=== PATIENT | male | born 1955 | race Caucasian/White ===

== ENCOUNTER → 2017-07-02 | Outpatient (CLI) | payer MEDICAID ==
[2017-07-02 12:58] LABS: ALANINE AMINOTRANSFERASE 34 U/L (21-72); ALBUMIN 4.3 g/dL (3.5-5.0); ALKALINE PHOSPHATASE 108 U/L (38-126); ANION GAP 12 (5-19); ASPARTATE AMINO TRANSFERASE 32 U/L (17-59); BILIRUBIN,DIRECT 0.5 mg/dL (0.0-0.4); BILIRUBIN,TOTAL 0.9 mg/dL (0.2-1.3); BLOOD UREA NITROGEN 20 mg/dL (7-20); CALCIUM 9.2 mg/dL (8.4-10.2); CARBON DIOXIDE 21 mmol/L (22-30); CHLORIDE 107 mmol/L (98-107); GLUCOSE 100 mg/dL (75-110); SODIUM 139.5 mmol/L (137-145); TOTAL PROTEIN 8.2 g/dL (6.3-8.2); TRIGLYCERIDES 73 mg/dL (<150)
[2017-07-02 13:09] LABS: DIRECT LDL 115 mg/dL (<100)
[2017-07-02 13:13] LABS: POTASSIUM 6.4 mmol/L (3.6-5.0)
== END ==
LOC: OD 10:54
PROVIDERS: ATTEND Internal Medicine
DX: E78.5 Hyperlipidemia, unspecified (principal); Z79.899 Other long term (current) drug therapy
CPT/HCPCS: 36415; 80053; 80061

== ENCOUNTER 2017-07-03 14:02 | Emergency (ER) | payer MEDICAID ==
--- NOTE | 2017-07-03 14:26 | ER Document Report ---
ED General - General Chief Complaint: Abnormal Lab Results Stated Complaint: ABNORMAL LABS Time Seen by Provider: 07/03/17 14:08 Mode of Arrival: Ambulatory Information source: Patient Notes: 61-year-old male on spironolactone history of hypertension presents with complaints of high blood level of potassium. Patient denies any other complaints notes he had blood work performed yesterday by his radiation control worker they notified him that his potassium level was high and they sent him in for evaluation. Patient denies any other issues denies a history of any high potassium TRAVEL OUTSIDE OF THE [place] IN LAST 30 DAYS: No - HPI Onset: Yesterday Onset/Duration: Sudden Quality of pain: No pain Severity: None Pain Level: Denies Associated symptoms: None Exacerbated by: Denies Relieved by: Denies Similar symptoms previously: No Recently seen / treated by doctor: No - Related Data Allergies/Adverse Reactions: No Known Allergies Allergy (Verified 07/03/17 14:16) Past Medical History - Social History Smoking Status: Never Smoker Cigarette use (# per day): No Chew tobacco use (# tins/day): No Smoking Education Provided: No Frequency of alcohol use: Rare Drug Abuse: None Family History: Reviewed & Not Pertinent Patient has suicidal ideation: No Patient has homicidal ideation: No - Past Medical History Cardiac Medical History: Reports: Hx Atrial Fibrillation, Hx Congestive Heart Failure, Hx Hypertension Pulmonary Medical History: Reports: Hx COPD Renal/ Medical History: Denies: Hx Peritoneal Dialysis Past Surgical History: Reports: Hx Cardiac Surgery - pacemaker/defib Review of Systems - Review of Systems Notes: REVIEW OF SYSTEMS: CONSTITUTIONAL : Denies fever, chills, or sweats. Denies recent illness. EENT: Denies eye, ear, throat, or mouth pain or symptoms. Denies nasal or sinus congestion or discharge. Denies throat, tongue, or mouth swelling or difficulty swallowing. CARDIOVASCULAR: Denies chest pain. Denies palpitations or racing or irregular heart beat. Denies ankle edema. RESPIRATORY: Denies cough, cold, or chest congestion. Denies shortness of breath, difficulty breathing, or wheezing. GASTROINTESTINAL: Denies abdominal pain or distention. Denies nausea, vomiting , or diarrhea. Denies blood in vomitus, stools, or per rectum. Denies black, tarry stools. Denies constipation. GENITOURINARY: Denies difficulty urinating, painful urination, burning, frequency, blood in urine, or discharge. MUSCULOSKELETAL: Denies back or neck pain or stiffness. Denies joint pain or swelling. SKIN: Denies rash, lesions or sores. HEMATOLOGIC : Denies easy bruising or bleeding. LYMPHATIC: Denies swollen, enlarged glands. NEUROLOGICAL: Denies confusion or altered mental status. Denies passing out or loss of consciousness. Denies dizziness or lightheadedness. Denies headache. Denies weakness or paralysis or loss of use of either side. Denies problems with gait or speech. Denies sensory loss, numbness, or tingling. Denies seizures. PSYCHIATRIC: Denies anxiety or stress. Denies depression, suicidal ideation, or homicidal ideation. ALL OTHER SYSTEMS REVIEWED AND NEGATIVE. Dictation was performed using [employer] voice recognition software PHYSICAL EXAMINATION: GENERAL: Well-appearing, well-nourished and in no acute distress. HEAD: Atraumatic, normocephalic. EYES: Pupils equal round and reactive to light, extraocular movements intact, sclera anicteric, conjunctiva are normal. ENT: Nares patent, oropharynx clear without exudates. Moist mucous membranes. NECK: Normal range of motion, supple without lymphadenopathy LUNGS: Breath sounds clear to auscultation bilaterally and equal. No wheezes rales or rhonchi. HEART: Regular rate and rhythm without murmurs ABDOMEN: Soft, nontender, nondistended abdomen. No guarding, no rebound. No masses appreciated. Musculoskeletal: Normal range of motion, no pitting or edema. No cyanosis. NEUROLOGICAL: Cranial nerves grossly intact. Normal speech, normal gait. Normal sensory, motor exams PSYCH: Normal mood, normal affect. SKIN: Warm, Dry, normal turgor, no rashes or lesions noted. Physical Exam - Vital signs Vitals: Pulse Resp BP Pulse Ox 82 16 137/94 H 97 07/03/17 15:07 07/03/17 15:07 07/03/17 15:07 07/03/17 15:07 Course - Re-evaluation Re-evalutation: 07/03/17 14:25 Repeat of patient's potassium will be ordered 07/03/17 20:32 Patient's potassium was within normal limits, I believe this was just a lab abnormality, EKG noted that his pacemaker fires intermittently, patient has been made aware of this he states that he will have it evaluated by Instagram at his radiation control worker office After performing a Medical Screening Examination, I estimate there is LOW risk for RUPTURED ESOPHAGUS, PNEUMOTHORAX, PULMONARY EMBOLISM, ACUTE CORONARY SYNDROME, OR THORACIC AORTIC DISSECTION, thus I consider the discharge disposition reasonable. I have reevaluated this patient multiple times and no significant life threatening changes are noted. The patient and I have discussed the diagnosis and risks, and we agree with discharging home with close follow-up. We also discussed returning to the Emergency Department immediately if new or worsening symptoms occur. We have discussed the symptoms which are most concerning (e.g., bloody sputum, worsening pain or shortness of breath) that necessitate immediate return. - Vital Signs Vital signs: Temp Pulse Resp BP Pulse Ox 82 16 137/94 H 97 07/03/17 15:07 07/03/17 15:07 07/03/17 15:07 07/03/17 15:07 - Laboratory Result Diagrams: 07/03/17 14:15 07/03/17 14:15 Laboratory results interpreted by me: 07/03/17 07/03/17 14:15 14:15 Hgb 17.1 H Carbon Dioxide 20 L Creatinine 1.47 H Est GFR ( Amer) 59 L Est GFR (Non-Af Amer) 49 L Direct Bilirubin 0.5 H Total Protein 8.4 H - EKG Interpretation by Id EKG shows normal: Sinus rhythm, [place], Intervals, QRS Complexes Discharge - Discharge Clinical Impression: Hypertension Qualifiers: Hypertension type: essential hypertension Qualified Code(s): I10 - Essential ( primary) hypertension CKD (chronic kidney disease) Qualifiers: Chronic kidney disease stage: stage 1 Qualified Code(s): N18.1 - Chronic kidney disease, stage 1 Condition: Stable Disposition: HOME, SELF-CARE Instructions: Potassium ([facility]) Referrals: KRISS RODRIGUEZ MD [Primary Care Provider] - Follow up tomorrow
[2017-07-03 14:43] LABS: ABSOLUTE BASOPHILS # (AUTO) 0.1 10^3/uL (0.0-0.2); ABSOLUTE EOSINOPHILS # (AUTO) 0.3 10^3/uL (0.0-0.6); ABSOLUTE LYMPHOCYTES (AUTO) 1.6 10^3/uL (0.5-4.7); ABSOLUTE MONOCYTES (AUTO) 0.7 10^3/uL (0.1-1.4); ABSOLUTE NEUT (AUTO) 6.1 10^3/uL (1.7-8.2); BASOPHILS % (AUTO) 0.8 % (0-2); EOSINOPHILS % (AUTO) 2.9 % (0-6); HEMATOCRIT 50.3 % (37.9-51.0); HEMOGLOBIN 17.1 g/dL (13.5-17.0); LYMPHOCYTES % (AUTO) 18.1 % (13-45); MEAN CORPUSCULAR HEMOGLOBIN 31.8 pg (27.0-33.4); MEAN CORPUSCULAR HGB CONC 34.1 g/dL (32.0-36.0); MEAN CORPUSCULAR VOLUME 93 fl (80-97); MONOCYTES % (AUTO) 8.2 % (3-13); RED BLOOD COUNT 5.39 10^6/uL (4.35-5.55); RED CELL DISTRIBUTION WIDTH 13.8 % (11.5-14.0); TOTAL CELLS COUNTED % (AUTO) 100 %; WHITE BLOOD COUNT 8.8 10^3/uL (4.0-10.5)
[2017-07-03 14:58] LABS: ALANINE AMINOTRANSFERASE 37 U/L (21-72); ALBUMIN 4.5 g/dL (3.5-5.0); ALKALINE PHOSPHATASE 112 U/L (38-126); ANION GAP 13 (5-19); ASPARTATE AMINO TRANSFERASE 35 U/L (17-59); BILIRUBIN,DIRECT 0.5 mg/dL (0.0-0.4); BLOOD UREA NITROGEN 19 mg/dL (7-20); CALCIUM 9.7 mg/dL (8.4-10.2); CARBON DIOXIDE 20 mmol/L (22-30); CHLORIDE 106 mmol/L (98-107); GLUCOSE 106 mg/dL (75-110); SODIUM 139.4 mmol/L (137-145); TOTAL PROTEIN 8.4 g/dL (6.3-8.2)
[2017-07-03 15:10] VITALS: BP 137/94
[2017-07-03 15:13] LABS: PLATELET COUNT 273 10^3/uL (150-450)
--- NOTE | 2017-07-03 19:55 | EKG REPORT ---
SEVERITY:- ABNORMAL ECG - OLD ANTERIOR [place] VENTRICULAR-PACED COMPLEXES, ATRIAL FIB. : Confirmed by: Archie Pack MD 03-Jul-2017 19:54:23
== END 2017-07-03 15:11 | disposition home or self-care (01) ==
LOC: ER 14:02
DX: N18.1 Chronic kidney disease, stage 1 (principal); I12.9 Hypertensive chronic kidney disease with stage 1 through stage 4 chronic kidney disease, or unspecified chronic kidney disease; E87.5 Hyperkalemia; I48.91 Unspecified atrial fibrillation; I50.9 Heart failure, unspecified; J44.9 Chronic obstructive pulmonary disease, unspecified; Z95.810 Presence of automatic (implantable) cardiac defibrillator
CPT/HCPCS: 36415; 80053; 83735; 85025; 93005; 93010; 99284

== ENCOUNTER → 2017-08-13 | Outpatient (CLI) | payer MEDICAID ==
[2017-08-13 13:52] LABS: INTERNATIONAL RATION (INR) 2.71; PROTHROMBIN TIME 30.1 SEC (11.4-15.4)
== END ==
LOC: OD 12:11
PROVIDERS: ATTEND Internal Medicine
DX: I48.2 Chronic atrial fibrillation (principal); I10 Essential (primary) hypertension; I34.0 Nonrheumatic mitral (valve) insufficiency; R06.02 Shortness of breath; I42.0 Dilated cardiomyopathy; Z79.01 Long term (current) use of anticoagulants; I50.22 Chronic systolic (congestive) heart failure; E78.4 Other hyperlipidemia; Z79.899 Other long term (current) drug therapy; Z95.810 Presence of automatic (implantable) cardiac defibrillator
CPT/HCPCS: 36415; 85610

== ENCOUNTER → 2017-09-09 | Outpatient (CLI) | payer MEDICAID ==
[2017-09-09 13:38] LABS: INTERNATIONAL RATION (INR) 2.98; PROTHROMBIN TIME 32.3 SEC (11.4-15.4)
== END ==
LOC: OD 12:38
PROVIDERS: ATTEND Internal Medicine
DX: I48.2 Chronic atrial fibrillation (principal); I10 Essential (primary) hypertension; I34.0 Nonrheumatic mitral (valve) insufficiency; R06.02 Shortness of breath; I42.0 Dilated cardiomyopathy; Z79.01 Long term (current) use of anticoagulants; I50.22 Chronic systolic (congestive) heart failure; Z95.810 Presence of automatic (implantable) cardiac defibrillator; E78.4 Other hyperlipidemia; Z79.899 Other long term (current) drug therapy
CPT/HCPCS: 36415; 85610

== ENCOUNTER → 2017-10-14 | Outpatient (CLI) | payer MEDICAID ==
[2017-10-14 14:17] LABS: INTERNATIONAL RATION (INR) 3.38; PROTHROMBIN TIME 35.7 SEC (11.4-15.4)
== END ==
LOC: OD 13:36
PROVIDERS: ATTEND Internal Medicine
DX: I48.2 Chronic atrial fibrillation (principal); Z79.01 Long term (current) use of anticoagulants; I10 Essential (primary) hypertension; I50.22 Chronic systolic (congestive) heart failure; E78.4 Other hyperlipidemia; I34.0 Nonrheumatic mitral (valve) insufficiency; I42.0 Dilated cardiomyopathy; R06.02 Shortness of breath; Z95.810 Presence of automatic (implantable) cardiac defibrillator; Z79.899 Other long term (current) drug therapy
CPT/HCPCS: 36415; 85610

== ENCOUNTER → 2017-11-03 | Outpatient (CLI) | payer MEDICAID ==
[2017-11-03 15:00] LABS: INTERNATIONAL RATION (INR) 3.04; PROTHROMBIN TIME 32.9 SEC (11.4-15.4)
== END ==
LOC: OD 13:31
PROVIDERS: ATTEND Internal Medicine
DX: I48.2 Chronic atrial fibrillation (principal); Z79.01 Long term (current) use of anticoagulants; I10 Essential (primary) hypertension; I34.0 Nonrheumatic mitral (valve) insufficiency; R06.02 Shortness of breath; I42.0 Dilated cardiomyopathy; I50.22 Chronic systolic (congestive) heart failure; E78.4 Other hyperlipidemia; Z79.899 Other long term (current) drug therapy; Z95.810 Presence of automatic (implantable) cardiac defibrillator
CPT/HCPCS: 36415; 85610

== ENCOUNTER → 2017-11-21 | Outpatient (CLI) | payer MEDICAID ==
[2017-11-21 15:16] LABS: INTERNATIONAL RATION (INR) 2.09; PROTHROMBIN TIME 24.5 SEC (11.4-15.4)
== END ==
LOC: OD 13:32
PROVIDERS: ATTEND Internal Medicine
DX: I48.2 Chronic atrial fibrillation (principal); Z79.01 Long term (current) use of anticoagulants; I11.0 Hypertensive heart disease with heart failure; I50.22 Chronic systolic (congestive) heart failure; I34.0 Nonrheumatic mitral (valve) insufficiency; R06.02 Shortness of breath; I42.0 Dilated cardiomyopathy; E78.4 Other hyperlipidemia; Z79.899 Other long term (current) drug therapy; Z95.810 Presence of automatic (implantable) cardiac defibrillator
CPT/HCPCS: 36415; 85610

== ENCOUNTER → 2017-12-12 | Outpatient (CLI) | payer MEDICAID ==
[2017-12-12 10:51] LABS: INTERNATIONAL RATION (INR) 2.21; PROTHROMBIN TIME 25.6 SEC (11.4-15.4)
== END ==
LOC: OD 09:40
PROVIDERS: ATTEND Internal Medicine
DX: I48.2 Chronic atrial fibrillation (principal); I34.0 Nonrheumatic mitral (valve) insufficiency; R06.02 Shortness of breath; I42.0 Dilated cardiomyopathy; Z79.01 Long term (current) use of anticoagulants; I11.0 Hypertensive heart disease with heart failure; I50.22 Chronic systolic (congestive) heart failure; E78.4 Other hyperlipidemia; Z95.810 Presence of automatic (implantable) cardiac defibrillator; Z79.899 Other long term (current) drug therapy
CPT/HCPCS: 36415; 85610

== ENCOUNTER → 2018-01-19 | Outpatient (CLI) | payer MEDICAID ==
[2018-01-19 10:39] LABS: INTERNATIONAL RATION (INR) 3.01; PROTHROMBIN TIME 32.6 SEC (11.4-15.4)
== END ==
LOC: OD 09:34
PROVIDERS: ATTEND Internal Medicine
DX: I48.2 Chronic atrial fibrillation (principal); Z79.01 Long term (current) use of anticoagulants
CPT/HCPCS: 36415; 85610

== ENCOUNTER → 2018-03-03 | Outpatient (CLI) | payer MEDICAID ==
[2018-03-03 12:01] LABS: INTERNATIONAL RATION (INR) 2.55; PROTHROMBIN TIME 28.6 SEC (11.4-15.4)
== END ==
LOC: OD 11:30
PROVIDERS: ATTEND Internal Medicine
DX: I48.2 Chronic atrial fibrillation (principal); Z79.01 Long term (current) use of anticoagulants; I11.0 Hypertensive heart disease with heart failure; I50.22 Chronic systolic (congestive) heart failure; I34.0 Nonrheumatic mitral (valve) insufficiency; R06.02 Shortness of breath; I42.0 Dilated cardiomyopathy; Z95.810 Presence of automatic (implantable) cardiac defibrillator; E78.49 Other hyperlipidemia; Z79.899 Other long term (current) drug therapy
CPT/HCPCS: 36415; 85610

== ENCOUNTER 2018-03-27 08:45 | Observation (INO) | payer MEDICAID ==
[2018-03-27] MEDS ORDERED: ASPIRIN 81 MG TABLET, CHEWABLE PO ONE (08:58)
[2018-03-27 09:05] LABS: ABSOLUTE EOSINOPHILS # (AUTO) 0.4 10^3/uL (0.0-0.6); ABSOLUTE LYMPHOCYTES (AUTO) 1.2 10^3/uL (0.5-4.7); ABSOLUTE MONOCYTES (AUTO) 0.4 10^3/uL (0.1-1.4); ABSOLUTE NEUT (AUTO) 6.7 10^3/uL (1.7-8.2); BASOPHILS % (AUTO) 0.3 % (0-2); EOSINOPHILS % (AUTO) 4.4 % (0-6); HEMOGLOBIN 16.4 g/dL (13.5-17.0); LYMPHOCYTES % (AUTO) 13.9 % (13-45); MEAN CORPUSCULAR HEMOGLOBIN 32.5 pg (27.0-33.4); MEAN CORPUSCULAR HGB CONC 34.1 g/dL (32.0-36.0); MEAN CORPUSCULAR VOLUME 95 fl (80-97); MONOCYTES % (AUTO) 4.8 % (3-13); PLATELET COUNT 341 10^3/uL (150-450); RED BLOOD COUNT 5.04 10^6/uL (4.35-5.55); RED CELL DISTRIBUTION WIDTH 13.3 % (11.5-14.0); SEGMENTED NEUTROPHILS % (AUTO) 76.6 % (42-78); TOTAL CELLS COUNTED % (AUTO) 100 %; WHITE BLOOD COUNT 8.8 10^3/uL (4.0-10.5)
--- NOTE | 2018-03-27 09:14 | ER Document Report ---
ED Cardiac - General Chief Complaint: Arrhythmia Stated Complaint: CHEST PAIN Time Seen by Provider: 03/27/18 08:57 Mode of Arrival: Ambulatory Information source: Patient Notes: Chief complaint: Discharge of pacemaker defibrillator History of complain:( obtained from----patient) 62 years old male with a pacemaker replaced 2 weeks ago, had a shower this morning after the shower he had 2 episodes of discharge from the defibrillator and shocked him twice. Prior to that he did not have any symptoms, after shocking also he did not have any symptoms. Denies any chest pain palpitation diaphoresis. Denies any left arm numbness tingling sensation.. Denies any fever chills, chills or other constitutional symptoms. Onset: As above. Sudden Duration: Sudden just prior to arrival Severity: Mild to moderate Quality: Not applicable Context: Unknown Exacerbating factor and relieving factors: Possibly exertion REVIEW OF SYSTEMS: CONSTITUTIONAL : Denies fever, chills, or sweats. Denies recent illness. EENT: Denies eye, ear, throat, or mouth pain or symptoms. Denies nasal or sinus congestion or discharge. Denies throat, tongue, or mouth swelling or difficulty swallowing. CARDIOVASCULAR: Denies chest pain. Denies palpitations or racing or irregular heart beat. Denies ankle edema. RESPIRATORY: Denies cough, cold, or chest congestion. Denies shortness of breath, difficulty breathing, or wheezing. GASTROINTESTINAL: Denies distention. Denies nausea, vomiting, or diarrhea. Denies blood in vomitus, stools, or per rectum. Denies black, tarry stools. Denies constipation. GENITOURINARY: Denies difficulty urinating, painful urination, burning, frequency, blood in urine, or discharge. FEMALE GENITOURINARY: Denies vaginal bleeding, heavy or abnormal periods, irregular periods. Denies vaginal discharge or odor. MUSCULOSKELETAL: Denies back or neck pain or stiffness. Denies joint pain or swelling. SKIN: Denies rash, lesions or sores. HEMATOLOGIC : Denies easy bruising or bleeding. LYMPHATIC: Denies swollen, enlarged glands. NEUROLOGICAL: Denies confusion or altered mental status. Denies passing out or loss of consciousness. Denies dizziness or lightheadedness. Denies headache. Denies weakness or paralysis or loss of use of either side. Denies problems with gait or speech. Denies sensory loss, numbness, or tingling. Denies seizures. PSYCHIATRIC: Denies anxiety or stress. Denies depression, suicidal ideation, or homicidal ideation. ALL OTHER SYSTEMS REVIEWED AND NEGATIVE. PHYSICAL EXAMINATION: GENERAL: Well-appearing, well-nourished and in no acute distress. HEAD: Atraumatic, normocephalic. EYES: Pupils equal round and reactive to light, extraocular movements intact, conjunctiva are normal. ENT: Nares patent, oropharynx clear without exudates. Moist mucous membranes. NECK: Normal range of motion, supple without lymphadenopathy LUNGS: Breath sounds clear to auscultation bilaterally and equal. No wheezes rales or rhonchi. HEART: Regular rate and rhythm without murmurs ABDOMEN: Soft, nontender, nondistended abdomen. No guarding, no rebound. No masses appreciated. Examination of genitals-deferred Musculoskeletal: Normal range of motion, no pitting or edema. No cyanosis. NEUROLOGICAL: Cranial nerves grossly intact. Normal speech, normal gait. Normal sensory, motor exams PSYCH: Normal mood, normal affect. SKIN: Warm, Dry, normal turgor, no rashes or lesions noted. Dictation was performed using [employer] voice recognition software TRAVEL OUTSIDE OF THE [place] IN LAST 30 DAYS: No - HPI Notes: Dictated - Related Data Allergies/Adverse Reactions: No Known Allergies Allergy (Verified 07/03/17 14:16) Past Medical History - Social History Smoking Status: Former Smoker Cigarette use (# per day): No Chew tobacco use (# tins/day): No Smoking Education Provided: No Frequency of alcohol use: Rare Lives with: Family Family History: Reviewed & Not Pertinent - Past Medical History Cardiac Medical History: Reports: Hx Atrial Fibrillation, Hx Congestive Heart Failure, Hx Hypertension Pulmonary Medical History: Reports: Hx COPD Renal/ Medical History: Denies: Hx Peritoneal Dialysis Past Surgical History: Reports: Hx Cardiac Surgery - pacemaker/defib Review of Systems - Review of Systems Notes: Dictated Physical Exam - Vital signs Vitals: Resp 23 H 03/27/18 08:52 - Notes Notes: Dictated Course - Vital Signs Vital signs: Temp Pulse Resp BP Pulse Ox 16 123/82 96 03/27/18 10:01 03/27/18 10:01 03/27/18 10:01 - Laboratory Result Diagrams: 03/27/18 08:51 03/27/18 08:51 Laboratory results interpreted by me: 03/27/18 08:51 Creatinine 1.40 H Est GFR (Non-Af Amer) 51 L Glucose 116 H Alkaline Phosphatase 130 H Creatine Kinase < 20 L - Diagnostic Test Radiology reviewed: Reports reviewed - Chest x-ray reported by radiologist as unremarkable - EKG Interpretation by Me EKG shows normal: Sinus rhythm - Electrocardiogram shows sinus rhythm at a rate of 67 bpm normal axis, no acute ST elevation ST depression T wave inversion noted. Discharge - Discharge Clinical Impression: Ventricular tachycardia Condition: Fair Disposition: ADMITTED INPATIENT Admitting Provider: Hospitalist Unit Admitted: IMCU Referrals: YUMIKO PHILLIPS MD [ACTIVE STAFF] - Follow up as needed
[2018-03-27 09:21] LABS: ALANINE AMINOTRANSFERASE 29 U/L (21-72); ALBUMIN 3.7 g/dL (3.5-5.0); ALKALINE PHOSPHATASE 130 U/L (38-126); ANION GAP 15 (5-19); ASPARTATE AMINO TRANSFERASE 33 U/L (17-59); BILIRUBIN,DIRECT 0.2 mg/dL (0.0-0.4); BILIRUBIN,TOTAL 0.9 mg/dL (0.2-1.3); BLOOD UREA NITROGEN 18 mg/dL (7-20); CALCIUM 9.3 mg/dL (8.4-10.2); CARBON DIOXIDE 22 mmol/L (22-30); CHLORIDE 107 mmol/L (98-107); GLUCOSE 116 mg/dL (75-110); POTASSIUM 4.5 mmol/L (3.6-5.0); SODIUM 144.1 mmol/L (137-145); TOTAL PROTEIN 7.6 g/dL (6.3-8.2)
--- NOTE | 2018-03-27 09:24 | RADIOLOGY REPORT (SQ) ---
EXAM DESCRIPTION: CHEST SINGLE VIEW COMPLETED DATE/TIME: 03/27/2018 9:14 am REASON FOR STUDY: chest pain COMPARISON: 12/11/2015 EXAM PARAMETERS: NUMBER OF VIEWS: One view. TECHNIQUE: Single frontal radiographic view of the chest acquired. RADIATION DOSE: NA LIMITATIONS: None. FINDINGS: LUNGS AND PLEURA: No opacities, masses or pneumothorax. No pleural effusion. MEDIASTINUM AND HILAR STRUCTURES: No masses. Contour normal. HEART AND VASCULAR STRUCTURES: Cardiomegaly with multi lead left chest pacer defibrillator. BONES: No acute findings. HARDWARE: None in the chest. OTHER: No other significant finding. IMPRESSION: Cardiomegaly without acute abnormality of the lungs in AP projection. TECHNICAL DOCUMENTATION: JOB ID: [id number] [employer]- All Rights Reserved Reading location - IP/workstation name: [email or web address]
[2018-03-27 09:27] LABS: CREATINE KINASE < 20 U/L (55-170)
[2018-03-27 09:33] LABS: CREATINE KINASE MB 0.49 ng/mL (<4.55); TROPONIN I 0.013 ng/mL
[2018-03-27] MEDS ORDERED: ACETAMINOPHEN 325 MG TABLET PO PRN (14:02)
[2018-03-27] MEDS ORDERED: (PENDING PHARMACY ID) (Diltiazem Hcl [Diltiazem 24hr Er] 240 MG) PO SCH (16:45)
[2018-03-27] MEDS ORDERED: FOLIC ACID 1 MG TABLET PO SCH (18:00)
[2018-03-27] MEDS ORDERED: THIAMINE HCL 100 MG TABLET PO SCH (18:00)
[2018-03-27] MEDS: DILTIAZEM HCL 240 MG CAPSULE.CR PO SCH (19:05)
--- NOTE | 2018-03-27 19:47 | HISTORY AND PHYSICAL E ---
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 Mak in [place]. LOCAL TRAFFIC ROUTING ENGINEER: Dr. Resendez. PRIMARY CARE PROVIDER: [facility]. CHIEF COMPLAINT: AICD discharge. HISTORY OF PRESENT ILLNESS: The patient is a 62-year-old male with a past medical history of cardiomyopathy and subsequent AICD placement. The patient presented to the emergency department with a chief complaint of having had the AICD discharge twice a day. According to the patient, he has had a pacemaker/AICD for about 10 years now. About 2 weeks ago in [place], he had his battery changed. The patient had an uneventful course; however, today, after he got out of the shower, he had 2 spontaneous discharges. The patient denied any symptoms, other than just being fatigued from his shower. The patient denied any associated symptoms, such as nausea, vomiting, diarrhea. No shortness of breath. No dizziness, chest pain. No fevers, chills. The patient has had no drainage from his pacemaker site. The area appears approximated and healing. However, given that the patient had 2 separate episodes that warranted discharge, the patient was referred to the hospitalist for observation and management. The patient states that his AICD used to fire a lot, especially, when he was drinking. The patient admits to heavy alcohol use. The patient has bouts of heavy drinking stating his last drink was 2 weeks ago. The patient himself states that he feels okay. He had no symptoms afterwards nor before, but is agreeable to observation. PAST MEDICAL HISTORY: Remarkable for: 1. Paroxysmal atrial fibrillation. 2. Chronic systolic and diastolic congestive heart failure, EF 35%. 3. Hypertension. 4. COPD. PAST SURGICAL HISTORY: Remarkable for pacemaker defibrillator. ALLERGIES: No known drug allergies. HOME MEDICATIONS: Include: 1. Aspirin 81 mg p.o. daily. 2. Coreg 12.5 mg p.o. q.12 hours. 3. Diltiazem 240 mg p.o. daily. 4. Apresoline 25 mg p.o. q.12 hours. 5. Lisinopril 20 mg p.o. daily. 6. Multivitamin 1 tablet p.o. daily. 7. Coumadin 2.5 mg p.o. on Friday, Friday, , Friday. 8. Coumadin 5 mg on Friday, Friday, Friday. SOCIAL HISTORY: The patient currently resides at home. He is unemployed, basically disabled. The patient's brother is his surrogate decision maker, Stephen. He may be reached at [phone]. The patient denies any tobacco use. No history of illicit drug use; however, the patient does admit to some heavy alcohol use. States his last drink was 2-1/2 weeks ago. The patient is . FAMILY MEDICAL HISTORY: The patient does have a daughter who is healthy. He does have a brother who of liver cancer. The patient's father of an PA. The mother is alive, with hypertension. The patient does have another brother, who is healthy. REVIEW OF SYSTEMS: CONSTITUTIONAL: The patient denies any fever or chills, dizziness or weakness. SKIN: The patient denies any diaphoresis, rash, bruising, itching. HEENT: Denies any vision changes or hearing loss, nasal drainage or sore throat. No headache. CVS: Denies any chest pain, edema, heart palpitations. Admits to AICD discharge. CHEST: Denies any shortness of breath, sputum production or hemoptysis. : Denies any hematuria, pyuria or dysuria. GI: The patient denies any nausea, vomiting or diarrhea, abdominal pain, bloody hematemesis, melena or hematochezia. MUSCULOSKELETAL: Denies any acute joint pains. NEUROLOGICAL: No seizures, tremors, loss of consciousness. HEMATOLOGICAL: No nahum bleeding, easy bruising. ENDOCRINE: Denies any recent weight changes. PSYCHIATRIC: Denies suicidal or homicidal ideation. PHYSICAL EXAMINATION: GENERAL: On examination, the patient is a well-developed, well-nourished, 52-year-old male who is very pleasant. He is alert and oriented to person, place, time and situation. He is verbal, conversational. Does not appear to be in acute distress. VITAL SIGNS: Temperature is 98.4, pulse 60, respirations 16, blood pressure 125/74, oxygen saturation 100% on room air. SKIN: Warm and dry. No rash, not diaphoretic. HEENT: Pupils equal, round and reactive to light and accommodation. Conjunctivae are pink. No evidence of JVP. CVS: Heart is irregularly irregular. There is no rub. CHEST: Clear, symmetrical, unlabored. ABDOMEN: Soft, nontender, nondistended. Does have an umbilical hernia, reducible. EXTREMITIES: No clubbing, cyanosis or edema. PSYCHIATRIC: Appropriate affect, pleasant mood. DIAGNOSTICS: Lab values are as follows: Hematology obtained on 03/27/2018: WBCs are 8.8, hemoglobin 16.4, hematocrit is 48.0, platelet count is 344,000. Chemistry obtained on 03/27/2018: Sodium is 144, potassium 4.5, chloride is 107, carbon dioxide 22, BUN 18, creatinine 1.40, glucose 116. Calcium is 9.3, magnesium is 1.7, bilirubin is 0.9. AST 33, ALT is 29, alk phos 130. CK is 0.013. Total protein 7.6, albumin 3.7. IMPRESSION AND PLAN: 1. Ventricular tachycardia. Uncertain of the patient's threshold and so forth. Will have this interrogated. Magnesium is in appropriate range. Will resume the patient's home anti-dysrhythmic medication and consult Cardiology for further guidance. 2. Chronic systolic and diastolic congestive heart failure. The patient appears to be optivolemic at this point. Will continue the patient's home medications. 3. Atrial fibrillation. The patient is rate-controlled. He is in a paced rhythm intermittently; therefore, he is anticoagulated with Coumadin. Will repeat INR in the a.m. and follow. DISPOSITION: The patient is a FULL CODE. Pending patient's symptomatology and diagnostic findings, will reevaluate in the a.m. Time spent on this followup, including assessment, plan, physical examination, patient education, review of records and family meeting is 40 minutes. DICTATING PHYSICIAN: KRISTIN MATHUR NP [id number] PHY#: [id number] ID: [id number] JOB#: [id number] ACCT: [id number] cc:JOSUE israel MD > [facility] HOSPITALNick
--- NOTE | 2018-03-27 19:54 | Progress Note ---
Provider Note Provider Note: Patient seen and examined. Patient describes history of cardiomyopathy, chronic atrial fibrillation, no prior history of myocardial infarction, angina. Just had defibrillator battery change out about a week ago by Dr. Mak. Claims that he had a echocardiogram just prior to that which had shown EF at around 50%. Patient currently on Cardizem and carvedilol. Will go ahead and add Ranexa to the regimen as this can sometimes reduce defibrillator shocks. Patient does follow up with Dr. Resendez and Dr. Verma's office. I however believe that if patient remains shock free, he could be discharged in a.m. with close cardiology follow-up. Patient probably should also see Dr. Leland Mak within the next 1 week.
[2018-03-27] MEDS ORDERED: WARFARIN SODIUM 5 MG TABLET PO SCH (22:00)
[2018-03-27] MEDS ORDERED: CARVEDILOL 12.5 MG TABLET PO SCH (22:00)
[2018-03-27] MEDS ORDERED: (PENDING PHARMACY ID) (Warfarin Sodium 5 MG) PO SCH (22:00)
[2018-03-27] MEDS: HYDRALAZINE HCL 25 MG TABLET PO SCH ×2 (22:13→23:36)
[2018-03-27] MEDS: CARVEDILOL 12.5 MG TABLET PO SCH (22:17)
[2018-03-27] MEDS: RANOLAZINE 500 MG TAB.SR.12H PO SCH (22:17)
[2018-03-27 23:04] LABS: INTERNATIONAL RATION (INR) 1.81; PROTHROMBIN TIME 21.8 SEC (11.4-15.4)
--- NOTE | 2018-03-28 00:18 | EKG REPORT ---
SEVERITY:- ABNORMAL ECG - SINUS RHYTHM NONSPECIFIC T ABNORMALITIES, LATERAL LEADS : Confirmed by: Елена Madsen 28-Mar-2018 00:17:39
[2018-03-28 06:11] LABS: INTERNATIONAL RATION (INR) 1.94; PROTHROMBIN TIME 23.1 SEC (11.4-15.4)
--- NOTE | 2018-03-28 09:58 | EKG REPORT ---
SEVERITY:- ABNORMAL ECG - INTERMITTENT ATRIAL-SENSED VENTRICULAR-PACED COMPLEXES NONSPECIFIC T ABNORMALITIES, LATERAL LEADS : Confirmed by: Елена Madsen 28-Mar-2018 09:57:24
[2018-03-28] MEDS ORDERED: LISINOPRIL 10 MG TABLET PO SCH (10:00)
[2018-03-28] MEDS ORDERED: ASPIRIN 81 MG TABLET, ENT COATED PO SCH (10:00)
[2018-03-28 10:22] LABS: ALANINE AMINOTRANSFERASE 26 U/L (21-72); ALKALINE PHOSPHATASE 102 U/L (38-126); ASPARTATE AMINO TRANSFERASE 28 U/L (17-59); BILIRUBIN,DIRECT 0.4 mg/dL (0.0-0.4); BILIRUBIN,TOTAL 0.8 mg/dL (0.2-1.3); CHOLESTEROL 125.12 mg/dL (0-200); TOTAL PROTEIN 6.4 g/dL (6.3-8.2); TRIGLYCERIDES 69 mg/dL (<150)
[2018-03-28 10:33] LABS: DIRECT LDL 96 mg/dL (<100)
[2018-03-28] MEDS: CARVEDILOL 12.5 MG TABLET PO SCH (10:56)
[2018-03-28] MEDS: RANOLAZINE 500 MG TAB.SR.12H PO SCH (10:57)
[2018-03-28] MEDS: DILTIAZEM HCL 240 MG CAPSULE.CR PO SCH (10:57)
[2018-03-28] MEDS: HYDRALAZINE HCL 25 MG TABLET PO SCH (10:57)
[2018-03-28 15:56] VITALS: BP 119/79
[2018-03-28] MEDS ORDERED: WARFARIN SODIUM 2.5 MG TABLET PO SCH (22:00)
--- NOTE | 2018-03-29 16:22 | DISCHARGE SUMMARY E ---
Discharge Summary NAME: GELACIO ARANGO : 1955 AGE: 62Y ADMITTED: 03/27/2018 DISCHARGED: 03/28/2018 DISCHARGE DIAGNOSES: Include: 1. Ventricular tachycardia, status post AICD discharge x2. 2. Chronic systolic and diastolic congestive heart failure with an EF of 50%; previously was 35%. 3. Atrial fibrillation. 4. AICD and pacemaker. 5. Alcohol abuse. 6. Chronic anticoagulation. 7. Hypertension. CODE STATUS: FULL CODE. SHAKE PACKER: Dr. Leland Mak. LOCAL DRYWALL STRIPPER HELPER: Dr. Resendez. DISCHARGE MEDICATIONS: Include: 1. Aspirin 81 mg p.o. daily. 2. Coreg 12.5 mg p.o. q.12 hours. 3. Cardizem ER 240 mg p.o. daily. 4. Apresoline 25 mg p.o. q.12 hours. 5. Lisinopril 20 mg p.o. daily. 6. Multivitamin 1 tablet p.o. daily. 7. Coumadin 2.5 mg p.o. on Friday, , Friday, Friday. 8. Coumadin 5 mg on Friday, Friday, Friday. 9. Ranexa 500 mg p.o. q.12 hours, 60 tablets, 0 refills. DIET: Heart healthy. ACTIVITY: As tolerated. CONDITION: Good. DIAGNOSTICS: Lab values are as follows: Hematology on 03/27/2018: WBCs are 8.8, hemoglobin 16.4, hematocrit is 48.0, platelet count is 341,000. Coagulation obtained on 03/28/2018: PT is 23.1, INR is 1.94. Chemistry obtained on 03/28/2018: Sodium is 144, potassium 4.5, chloride is 107, carbon dioxide 22, BUN 18, creatinine is 1.4. Glucose 116, calcium is 9.3, magnesium 1.7, bilirubin is 0.9. AST is 33, ALT is 29, alk phos 130, CK 20, CK MB is 0.49. Troponin 0.023. Total protein 7.6, albumin 3.7. Triglycerides are 69, cholesterol is 121. LDL is 96, VLDL is 14, HDL is 25. TSH is 4.29. Chest x-ray obtained on 03/27/2018 reveals cardiomegaly without acute abnormality. EKG obtained on 03/27/2018 reveals sinus rhythm. EKG obtained on 03/27/2018 reveals atrial sensed, ventricularly paced complexes. PHYSICAL EXAMINATION: GENERAL: On examination, the patient is a well-developed, well-nourished, 62-year-old male, who is awake, alert and oriented to person, place, time and situation. He is verbal and conversational. Appears not to be in acute distress. VITAL SIGNS: Temperature is 98.6, pulse 60, respirations 16, blood pressure 121/79, oxygen saturation 97% on room air. SKIN: Warm and dry. No rash. Not diaphoretic. HEENT: Pupils equal, round, reactive to light and accommodation. Conjunctivae are pink. There is no evidence of JVP. CVS: Heart is regular. No murmur or rub. CHEST: Clear, symmetrical, unlabored. ABDOMEN: Soft, nontender, nondistended. BACK: No CVA tenderness or sacral edema. EXTREMITIES: No clubbing, cyanosis or edema. PSYCHIATRIC: Appropriate affect, pleasant mood. HISTORY OF PRESENT ILLNESS: The patient is a very pleasant 62-year-old male with a past medical history of cardiomyopathy and subsequent pacemaker AICD placement. The patient presented to the emergency department with a chief complaint of having his AICD discharge twice prior to arrival. According to the patient, he had a pacemaker AICD for about 10 years now. The patient had intermittent discharges with this; however, about 2 weeks ago, the patient had his battery changed and had an uneventful course after that until the day of presentation. When he got out of the shower, the patient had 2 spontaneous discharges. The patient denied any symptoms, other than just being fatigued from the shower. The patient denied any nausea, vomiting, diarrhea. No shortness of breath, dizziness, chest pain. No fevers, chills. The patient denies any drainage from the pacemaker site. The area appears approximated healing. The patient stated that his AICD used to fire, especially when he drank a lot. The patient states that his last drink was about 2 weeks ago. Other than the discharges, the patient states he feels okay, but would like to be observed. HOSPITAL COURSE: The patient was admitted to [facility]. The patient was observed overnight, with no replication of symptoms. Cardiac enzymes were obtained, which were not suggestive. The patient's lipid panel was in an appropriate range. LFTs were in a good place, and the patient's TSH as well. The patient's creatinine was at baseline. The patient was resumed on his home medications. The patient was seen and evaluated by Cardiology. Interrogation of AICD revealed 2 separate discharges of Vtach. The patient is quite eager for discharge. The patient was seen by Cardiology, who suggested the addition of Ranexa. The patient does have a followup appointment coming with his staff air defense officer. DISCHARGE PLAN: 1. The patient is to follow up Friday, as already scheduled with his staff air defense officer, Dr. Mak, for followup. 2. The patient is to follow up with his primary care provider as needed. 3. The patient is to follow up with his local engineer chief, Dr. Resendez, within 2 weeks for hospital followup. Time spent on this discharge, including assessment, plan, physical examination, patient education, review of records and specialty collaboration, was 35 minutes. DICTATING PHYSICIAN: KRISTIN MATHUR NP [id number] PHY#: [id number] ID: [id number] JOB#: [id number] ACCT: [id number] cc:MD KRISTIN Colmenares NP >
--- NOTE | 2018-03-31 15:49 | EKG REPORT ---
SEVERITY:- DEFECTIVE ECG - SINUS RHYTHM LEADS V2 AND V3 INTERCHANGED.REPEAT EKG. : Confirmed by: Neema Verma MD 31-Mar-2018 15:48:37
== END 2018-03-28 16:25 | disposition home or self-care (01) ==
LOC: ER 08:45 → INTOOBSV 13:08 → EH 13:08 → 3S 15:52
PROVIDERS: ADMIT Hospitalist; ATTEND Hospitalist
PROC: 3E02340 Introduction of Influenza Vaccine into Muscle, Percutaneous Approach (ICD-10-PCS; principal; 2018-03-28)
PROC: 4B02XTZ Measurement of Cardiac Defibrillator, External Approach (ICD-10-PCS; 2018-03-28)
DX: I47.2 Ventricular tachycardia (principal); I11.0 Hypertensive heart disease with heart failure; I50.42 Chronic combined systolic (congestive) and diastolic (congestive) heart failure; I48.0 Paroxysmal atrial fibrillation; I42.9 Cardiomyopathy, unspecified; F10.10 Alcohol abuse, uncomplicated; R53.83 Other fatigue; Z79.01 Long term (current) use of anticoagulants; Z45.02 Encounter for adjustment and management of automatic implantable cardiac defibrillator; Z82.49 Family history of ischemic heart disease and other diseases of the circulatory system; Z87.891 Personal history of nicotine dependence; Z23 Encounter for immunization
CPT/HCPCS: 99285; 36415 ×2; 82553; 82550; 83735; 84443; 85025; 85610 ×2; 80076; 80053; 84484; 80061; 71045; 90686; 93005 ×2; 93010 ×2; 93289; G0378 ×3; J3490 ×10

== ENCOUNTER → 2018-04-07 | Outpatient (CLI) | payer MEDICAID ==
[2018-04-07 13:05] LABS: INTERNATIONAL RATION (INR) 2.19; PROTHROMBIN TIME 25.4 SEC (11.4-15.4)
== END ==
LOC: OD 12:03
PROVIDERS: ATTEND Internal Medicine
DX: I48.2 Chronic atrial fibrillation (principal); I10 Essential (primary) hypertension; Z79.01 Long term (current) use of anticoagulants; I42.0 Dilated cardiomyopathy; I50.22 Chronic systolic (congestive) heart failure; I34.0 Nonrheumatic mitral (valve) insufficiency; R06.02 Shortness of breath; Z79.899 Other long term (current) drug therapy; Z95.810 Presence of automatic (implantable) cardiac defibrillator
CPT/HCPCS: 36415; 85610

== ENCOUNTER → 2018-05-19 | Outpatient (CLI) | payer MEDICAID ==
[2018-05-19 11:54] LABS: INTERNATIONAL RATION (INR) 2.12; PROTHROMBIN TIME 24.8 SEC (11.4-15.4)
== END ==
LOC: OD 11:03
PROVIDERS: ATTEND Internal Medicine
DX: I48.2 Chronic atrial fibrillation (principal); I11.0 Hypertensive heart disease with heart failure; I50.22 Chronic systolic (congestive) heart failure; I34.0 Nonrheumatic mitral (valve) insufficiency; I42.0 Dilated cardiomyopathy; R06.02 Shortness of breath; Z79.01 Long term (current) use of anticoagulants; Z95.810 Presence of automatic (implantable) cardiac defibrillator; Z79.899 Other long term (current) drug therapy
CPT/HCPCS: 36415; 85610

== ENCOUNTER → 2018-07-06 | Outpatient (CLI) | payer MEDICAID ==
[2018-07-06 12:14] LABS: INTERNATIONAL RATION (INR) 2.49; PROTHROMBIN TIME 28.1 SEC (11.4-15.4)
== END ==
LOC: OD 10:52
PROVIDERS: ATTEND Specialist
DX: I48.0 Paroxysmal atrial fibrillation (principal); I11.0 Hypertensive heart disease with heart failure; I50.22 Chronic systolic (congestive) heart failure; I34.0 Nonrheumatic mitral (valve) insufficiency; R06.02 Shortness of breath; Z79.01 Long term (current) use of anticoagulants; Z95.810 Presence of automatic (implantable) cardiac defibrillator; E78.49 Other hyperlipidemia; I48.1 Persistent atrial fibrillation; E78.5 Hyperlipidemia, unspecified; Z79.899 Other long term (current) drug therapy
CPT/HCPCS: 36415; 85610

== ENCOUNTER → 2018-08-19 | Outpatient (CLI) | payer MEDICAID ==
[2018-08-19 11:51] LABS: INTERNATIONAL RATION (INR) 2.11; PROTHROMBIN TIME 24.7 SEC (11.4-15.4)
== END ==
LOC: OD 10:44
PROVIDERS: ATTEND Specialist
DX: I48.0 Paroxysmal atrial fibrillation (principal); I50.22 Chronic systolic (congestive) heart failure; I11.0 Hypertensive heart disease with heart failure; I34.0 Nonrheumatic mitral (valve) insufficiency; R06.02 Shortness of breath; I42.0 Dilated cardiomyopathy; Z79.01 Long term (current) use of anticoagulants; Z95.810 Presence of automatic (implantable) cardiac defibrillator; E78.49 Other hyperlipidemia; I48.1 Persistent atrial fibrillation; Z79.899 Other long term (current) drug therapy
CPT/HCPCS: 36415; 85610

== ENCOUNTER → 2018-10-12 | Outpatient (CLI) | payer MEDICAID ==
[2018-10-12 13:20] LABS: INTERNATIONAL RATION (INR) 2.49; PROTHROMBIN TIME 28.1 SEC (11.4-15.4)
== END ==
LOC: OD 12:00
PROVIDERS: ATTEND Specialist
DX: I48.0 Paroxysmal atrial fibrillation (principal); I10 Essential (primary) hypertension; I34.0 Nonrheumatic mitral (valve) insufficiency; Z79.01 Long term (current) use of anticoagulants
CPT/HCPCS: 36415; 85610

== ENCOUNTER → 2018-11-09 | Outpatient (CLI) | payer MEDICAID ==
[2018-11-09 12:06] LABS: INTERNATIONAL RATION (INR) 2.68; PROTHROMBIN TIME 29.1 SEC (11.4-15.4)
== END ==
LOC: OD 11:37
PROVIDERS: ATTEND Specialist
DX: I48.0 Paroxysmal atrial fibrillation (principal); I10 Essential (primary) hypertension; I34.0 Nonrheumatic mitral (valve) insufficiency; R06.02 Shortness of breath; I42.0 Dilated cardiomyopathy; Z79.01 Long term (current) use of anticoagulants; I50.22 Chronic systolic (congestive) heart failure; Z95.810 Presence of automatic (implantable) cardiac defibrillator; E74.9 Disorder of carbohydrate metabolism, unspecified; I48.1 Persistent atrial fibrillation
CPT/HCPCS: 36415; 85610

== ENCOUNTER → 2018-12-18 | Outpatient (CLI) | payer MEDICAID ==
[2018-12-18 12:41] LABS: INTERNATIONAL RATION (INR) 2.36; PROTHROMBIN TIME 26.2 SEC (11.4-15.4)
== END ==
LOC: OD 11:52
PROVIDERS: ATTEND Specialist
DX: I48.0 Paroxysmal atrial fibrillation (principal); I10 Essential (primary) hypertension; I34.0 Nonrheumatic mitral (valve) insufficiency; R06.02 Shortness of breath; I42.0 Dilated cardiomyopathy; Z79.01 Long term (current) use of anticoagulants; I50.22 Chronic systolic (congestive) heart failure; Z95.810 Presence of automatic (implantable) cardiac defibrillator; E78.49 Other hyperlipidemia; I48.1 Persistent atrial fibrillation; Z79.899 Other long term (current) drug therapy
CPT/HCPCS: 36415; 85610

== ENCOUNTER → 2019-01-25 | Outpatient (CLI) | payer MEDICAID ==
[2019-01-25 13:00] LABS: INTERNATIONAL RATION (INR) 3.23; PROTHROMBIN TIME 33.7 SEC (11.4-15.4)
== END ==
LOC: OD 11:15
PROVIDERS: ATTEND Specialist
DX: I48.0 Paroxysmal atrial fibrillation (principal); I11.0 Hypertensive heart disease with heart failure; I50.22 Chronic systolic (congestive) heart failure; I34.0 Nonrheumatic mitral (valve) insufficiency; R06.02 Shortness of breath; Z79.01 Long term (current) use of anticoagulants; I42.0 Dilated cardiomyopathy; Z95.810 Presence of automatic (implantable) cardiac defibrillator; E78.49 Other hyperlipidemia; I48.1 Persistent atrial fibrillation; Z79.899 Other long term (current) drug therapy
CPT/HCPCS: 36415; 85610

== ENCOUNTER → 2019-02-12 | Outpatient (CLI) | payer MEDICAID ==
[2019-02-12 12:00] LABS: INTERNATIONAL RATION (INR) 3.67; PROTHROMBIN TIME 37.4 SEC (11.4-15.4)
== END ==
LOC: OD 11:18
PROVIDERS: ATTEND Specialist
DX: I48.19 Other persistent atrial fibrillation (principal); Z79.01 Long term (current) use of anticoagulants; I11.0 Hypertensive heart disease with heart failure; I50.22 Chronic systolic (congestive) heart failure; I34.0 Nonrheumatic mitral (valve) insufficiency; R06.02 Shortness of breath; I42.0 Dilated cardiomyopathy; E78.49 Other hyperlipidemia; Z79.899 Other long term (current) drug therapy
CPT/HCPCS: 36415; 85610

== ENCOUNTER → 2019-03-08 | Outpatient (CLI) | payer MEDICAID ==
[2019-03-08 10:12] LABS: ALBUMIN 4.2 g/dL (3.5-5.0); ALKALINE PHOSPHATASE 96 U/L (38-126); ANION GAP 11 (5-19); ASPARTATE AMINO TRANSFERASE 44 U/L (17-59); BILIRUBIN,DIRECT 0.3 mg/dL (0.0-0.4); BILIRUBIN,TOTAL 1.1 mg/dL (0.2-1.3); BLOOD UREA NITROGEN 17 mg/dL (7-20); CALCIUM 9.7 mg/dL (8.4-10.2); CARBON DIOXIDE 25 mmol/L (22-30); CHLORIDE 107 mmol/L (98-107); CHOLESTEROL 281.66 mg/dL (0-200); GLUCOSE 108 mg/dL (75-110); POTASSIUM 5.3 mmol/L (3.6-5.0); TOTAL PROTEIN 7.8 g/dL (6.3-8.2); TRIGLYCERIDES 97 mg/dL (<150)
[2019-03-08 10:23] LABS: DIRECT LDL 193 mg/dL (<100)
== END ==
LOC: OD 09:13
PROVIDERS: ATTEND Specialist
DX: I48.0 Paroxysmal atrial fibrillation (principal); I11.0 Hypertensive heart disease with heart failure; I50.22 Chronic systolic (congestive) heart failure; I34.0 Nonrheumatic mitral (valve) insufficiency; R06.02 Shortness of breath; I42.0 Dilated cardiomyopathy; Z79.01 Long term (current) use of anticoagulants; Z95.810 Presence of automatic (implantable) cardiac defibrillator; E78.49 Other hyperlipidemia
CPT/HCPCS: 36415; 80048; 80061; 80076

== ENCOUNTER → 2019-04-13 | Outpatient (CLI) | payer MEDICAID ==
[2019-04-13 12:33] LABS: INTERNATIONAL RATION (INR) 2.94; PROTHROMBIN TIME 31.2 SEC (11.4-15.4)
== END ==
LOC: OD 11:18
PROVIDERS: ATTEND Specialist
DX: I48.19 Other persistent atrial fibrillation (principal); I11.0 Hypertensive heart disease with heart failure; I50.22 Chronic systolic (congestive) heart failure; E78.49 Other hyperlipidemia; Z79.01 Long term (current) use of anticoagulants; I34.0 Nonrheumatic mitral (valve) insufficiency; I42.0 Dilated cardiomyopathy; R06.02 Shortness of breath; Z79.899 Other long term (current) drug therapy; Z95.810 Presence of automatic (implantable) cardiac defibrillator
CPT/HCPCS: 36415; 85610

== ENCOUNTER → 2019-07-06 | Outpatient (CLI) | payer MEDICAID ==
[2019-07-06 11:20] LABS: INTERNATIONAL RATION (INR) 3.42; PROTHROMBIN TIME 35.3 SEC (11.4-15.4)
== END ==
LOC: OD 10:27
PROVIDERS: ATTEND Specialist
DX: I48.0 Paroxysmal atrial fibrillation (principal); Z79.01 Long term (current) use of anticoagulants
CPT/HCPCS: 36415; 85610

== ENCOUNTER → 2019-07-21 | Outpatient (CLI) | payer MEDICAID ==
[2019-07-21 12:24] LABS: INTERNATIONAL RATION (INR) 2.69; PROTHROMBIN TIME 29.1 SEC (11.4-15.4)
== END ==
LOC: OD 11:44
PROVIDERS: ATTEND Specialist
DX: I48.0 Paroxysmal atrial fibrillation (principal); Z79.01 Long term (current) use of anticoagulants
CPT/HCPCS: 36415; 85610

== ENCOUNTER → 2019-09-23 | Outpatient (CLI) | payer MEDICARE, MEDICAID ==
[2019-09-23 11:09] LABS: INTERNATIONAL RATION (INR) 2.69; PROTHROMBIN TIME 29.1 SEC (11.4-15.4)
== END ==
LOC: OD 10:33
PROVIDERS: ATTEND Specialist
DX: I48.0 Paroxysmal atrial fibrillation (principal); Z79.01 Long term (current) use of anticoagulants
CPT/HCPCS: 36415; 85610

== ENCOUNTER → 2019-12-08 | Outpatient (CLI) | payer MEDICARE, MEDICAID ==
[2019-12-08 12:04] LABS: INTERNATIONAL RATION (INR) 2.68; PROTHROMBIN TIME 29.1 SEC (11.4-15.4)
== END ==
LOC: OD 11:19
PROVIDERS: ATTEND Specialist
DX: I48.0 Paroxysmal atrial fibrillation (principal); Z79.01 Long term (current) use of anticoagulants
CPT/HCPCS: 36415; 85610

== ENCOUNTER → 2020-01-31 | Outpatient (CLI) | payer MEDICARE, MEDICAID ==
[2020-01-31 12:23] LABS: INTERNATIONAL RATION (INR) 2.72; PROTHROMBIN TIME 28.8 SEC (11.4-15.4)
== END ==
LOC: OD 10:26
PROVIDERS: ATTEND Specialist
DX: I48.0 Paroxysmal atrial fibrillation (principal); Z79.01 Long term (current) use of anticoagulants
CPT/HCPCS: 36415; 85610

== ENCOUNTER → 2020-03-15 | Outpatient (CLI) | payer MEDICARE, MEDICAID ==
[2020-03-15 13:00] LABS: INTERNATIONAL RATION (INR) 2.78; PROTHROMBIN TIME 29.2 SEC (11.4-15.4)
== END ==
LOC: OD 12:06
PROVIDERS: ATTEND Specialist
DX: I48.0 Paroxysmal atrial fibrillation (principal); Z79.01 Long term (current) use of anticoagulants
CPT/HCPCS: 36415; 85610

== ENCOUNTER → 2020-05-15 | Outpatient (CLI) | payer MEDICARE, MEDICAID ==
[2020-05-15 13:54] LABS: INTERNATIONAL RATION (INR) 1.84; PROTHROMBIN TIME 21.3 SEC (11.4-15.4)
== END ==
LOC: OD 12:15
PROVIDERS: ATTEND Specialist
DX: I48.0 Paroxysmal atrial fibrillation (principal); Z79.01 Long term (current) use of anticoagulants
CPT/HCPCS: 36415; 85610

== ENCOUNTER → 2020-05-31 | Outpatient (CLI) | payer MEDICARE, MEDICAID ==
[2020-05-31 12:48] LABS: INTERNATIONAL RATION (INR) 2.18; PROTHROMBIN TIME 24.3 SEC (11.4-15.4)
== END ==
LOC: OD 10:45
PROVIDERS: ATTEND Specialist
DX: I48.0 Paroxysmal atrial fibrillation (principal); Z79.01 Long term (current) use of anticoagulants
CPT/HCPCS: 36415; 85610